=== PATIENT | male | born 1950 | race African-American/Black ===

== ENCOUNTER 2018-02-11 07:00 | Day surgery (SDC) | payer BC ==
[~2018-02-11] VITALS: Ht 180.3 cm; Wt 96.2 kg
[2018-02-11] MEDS ORDERED: LIDOCAINE 2% (LOCAL ANESTH.) PF 5ml SDV ONE (07:23)
[2018-02-11] MEDS ORDERED: IODIXANOL 320MG/ML 100ML BTL IV ONE (07:24)
[2018-02-11] MEDS ORDERED: fentaNYL CITRATE 100 MCG/2 ML VL ONE (08:52)
[2018-02-11] MEDS ORDERED: ANGIOMAX 250 MG VIAL IV ONE (08:52)
[2018-02-11] MEDS ORDERED: SODIUM CHL 0.9% 0 ML ONE (08:53)
[2018-02-11] MEDS ORDERED: MIDAZOLAM HCL 1MG/1ML-2 ML VIAL ONE (08:53)
[2018-02-11] MEDS ORDERED: SODIUM CHL 0.9% 50 ML ONE (08:57)
[2018-02-11] MEDS ORDERED: VERAPAMIL 2.5MG/ML INJ 2ML VIAL IV ONE ×2 (09:20→09:47)
[2018-02-11] MEDS ORDERED: HEPARIN SODIUM (PORCINE) 5000 UNITS/ML 1ML VIAL ONE (09:22)
[2018-02-11] MEDS ORDERED: SODIUM CHLORIDE 0.9% 1,000 ML IV SCH (10:00)
== END 2018-02-11 12:10 | disposition home or self-care (01) ==
LOC: CATH 07:00
PROVIDERS: ATTEND Internal Medicine Cardiovascular Disease
DX: I25.10 Atherosclerotic heart disease of native coronary artery without angina pectoris (principal); I50.30 Unspecified diastolic (congestive) heart failure; F17.210 Nicotine dependence, cigarettes, uncomplicated; I51.9 Heart disease, unspecified; E66.9 Obesity, unspecified; E11.9 Type 2 diabetes mellitus without complications; E78.5 Hyperlipidemia, unspecified; I10 Essential (primary) hypertension; Z86.73 Personal history of transient ischemic attack (TIA), and cerebral infarction without residual deficits
CPT/HCPCS: 82962; 93458; C1769; C1887; C1894; J1644; J2250; J3010; J7030; Q9967; 99152; 99153

== ENCOUNTER 2022-03-17 06:58 | Day surgery (SDC) | payer OTHER, MEDICAID ==
[~2022-03-17] VITALS: Ht 180.3 cm; Wt 88.9 kg
[2022-03-17] MEDS ORDERED: fentaNYL CITRATE 100 MCG/2 ML VL ONE (08:42)
[2022-03-17] MEDS ORDERED: IODIXANOL 320MG/ML 100ML BTL IV ONE ×2 (08:42→09:25)
[2022-03-17] MEDS ORDERED: MIDAZOLAM HCL 2MG/2ML 2ml VIAL (1mg/ml) ONE (08:42)
[2022-03-17] MEDS ORDERED: ANGIOMAX 250 MG VIAL IV ONE (08:43)
[2022-03-17] MEDS ORDERED: LIDOCAINE 2%HCL (LOCAL ANESTH.) INJ 10ml MDV ONE (08:43)
[2022-03-17] MEDS ORDERED: SODIUM CHL 0.9% 0 ML ONE (08:43)
[2022-03-17] MEDS ORDERED: INSUINJ47 IJ (10:52)
[2022-03-17] MEDS ORDERED: DULA1INJ SC (10:52)
[2022-03-17] MEDS ORDERED: LEVE500T3 PO (11:31)
[2022-03-17] MEDS ORDERED: LISI-716 PO (11:31)
[2022-03-17] MEDS ORDERED: MAGN400T40 PO (11:31)
[2022-03-17] MEDS ORDERED: LORA-622 PO (11:31)
[2022-03-17] MEDS ORDERED: SPIR25TA8 PO (11:31)
[2022-03-17] MEDS ORDERED: CARV3.1240 PO (11:31)
[2022-03-17] MEDS ORDERED: AMIO200T33 PO (11:31)
[2022-03-17] MEDS ORDERED: PANT40T PO (11:31)
[2022-03-17] MEDS ORDERED: FURO1TAB31 PO (11:31)
[2022-03-17] MEDS ORDERED: ATOR40TA52 PO (11:31)
== END 2022-03-17 12:03 | disposition home or self-care (01) ==
LOC: CATH 06:58
PROVIDERS: ATTEND Internal Medicine Cardiovascular Disease
DX: R94.39 Abnormal result of other cardiovascular function study (principal); I25.10 Atherosclerotic heart disease of native coronary artery without angina pectoris; I11.0 Hypertensive heart disease with heart failure; I50.20 Unspecified systolic (congestive) heart failure; I48.0 Paroxysmal atrial fibrillation; F17.200 Nicotine dependence, unspecified, uncomplicated; Z79.01 Long term (current) use of anticoagulants; Z95.1 Presence of aortocoronary bypass graft; Z20.822 Contact with and (suspected) exposure to COVID-19
CPT/HCPCS: 93459; 93567; C1760; C1769; C1894; J1644; J2001; J2250; J3010; J7030; Q9967; U0003; 99152; 99153